=== PATIENT | male | born 1940 | race Caucasian/White ===

== ENCOUNTER 2019-10-13 17:59 | Inpatient (IN) | payer MEDICARE, MEDICAID ==
[2019-10-14 01:46] VITALS: BP 106/58
[2019-10-14] MEDS ORDERED: Magnesium Hydroxide (MOM) 30 mL UDC PO PRN (01:46)
[2019-10-14] MEDS ORDERED: Maalox 30 mL Cup PO PRN (01:46)
[2019-10-14] MEDS: Multivitamin Tab PO SCH (09:28)
--- NOTE | 2019-10-14 22:24 | Progress Notes ---
DATE: 10/14/2019 INTERNAL MEDICINE FOLLOWUP PRIMARY CARE PHYSICIAN: David Mckee MD HISTORY OF PRESENT ILLNESS: The patient is a 79-year-old male, currently at [facility]. I am the PCP. CURRENT MEDICAL PROBLEMS: Include arthritis, peptic ulcer disease, osteoporosis, and coronary artery disease. PHYSICAL EXAMINATION: VITAL SIGNS: Stable. LUNGS: Clear. HEART: First and second heart sounds normal. ABDOMEN: Soft. Bowel sounds present and good. EXTREMITIES: Show arthritis. NEUROLOGIC: The patient is very agitated and confused. Psych consult reviewed. Medicines reviewed. LABORATORY DATA: Reviewed. PLAN: Continue current medical management. JOB# [id number]
--- NOTE | 2019-10-14 23:25 | Consultation ---
DATE OF CONSULTATION: 10/14/2019 INTERNAL MEDICINE CONSULTATION HISTORY OF PRESENT ILLNESS: This is a patient of mine, 79-year-old male, a resident of a correction, sent to [facility]. CURRENT MEDICAL PROBLEMS: Include coronary artery disease, peptic ulcer disease, arthritis, osteoporosis, and anemia. SOCIAL HISTORY: No prior history of smoking or alcohol abuse. FAMILY HISTORY: Not available. REVIEW OF SYSTEMS: The patient is very agitated. No vomiting, no diarrhea, no melena, no hematochezia. PHYSICAL EXAMINATION: GENERAL: Average male, in no obvious respiratory distress. VITAL SIGNS: Include a blood pressure of 110/70, heart rate 80, respiration rate of 18. SKIN: Show no cellulitis. HEENT: Normal conjunctivae. NECK: Supple. LUNGS: Clear. HEART: First and second normal. ABDOMEN: Soft. Bowel sounds present and good. EXTREMITIES: Show arthritis. NEUROLOGIC: The patient is very confused, very agitated. Labs have been reviewed. Psych consult reviewed. CURRENT MEDICAL DIAGNOSES: Include coronary artery disease, peptic ulcer disease, arthritis, and osteoporosis. CURRENT MEDICATIONS: Include Aricept, Colace, Namenda, and multivitamin. JOB# [id number]
--- NOTE | 2019-10-15 00:24 | Psychiatric Evaluation ---
DATE OF SERVICE: 10/14/2019 PSYCHIATRIC EVALUATION IDENTIFYING DATA: The patient is a 79-year-old male, resident of [facility] in [place]. Information obtained by directly interviewing the patient as well as reviewing the admission papers. JUSTIFICATION FOR HOSPITALIZATION: The patient is admitted on a 5150 as a danger to others. CHIEF COMPLAINT: "I don't know." HISTORY OF PRESENT ILLNESS: This is the first psychiatric hospitalization to the [facility] for this patient who is reported to have been striking out at the staff members and could not be redirected and hence the patient has to be admitted. I tried to interview the patient, but the patient is not providing much of any information. The patient is getting easily irritable and angry. The patient's sleep and appetite prior to the hospitalization are reported to be poor. PAST PSYCHIATRIC HISTORY: Details are not known. MEDICAL HISTORY AND PHYSICAL EXAMINATION: Requested to be done by Dr. David Mckee. SUBSTANCE ABUSE HISTORY: None. PHYSICAL OR SEXUAL ABUSE HISTORY: None. LEGAL PROBLEMS: None at this time. MENTAL STATUS EXAMINATION: The patient is a 79-year-old thin built, tall, superficially cooperative, very dysphoric. Insight and judgment at this time are noted to be still impaired. Impulse control is noted to be limited. Coping skills are noted to be limited. The patient has been having difficult time to cope with the stress. The patient's short and long-term memory are noted to be impaired. The patient is getting easily frustrated. Paranoia is noted, but the patient denies any command hallucinations. Attention span and concentration are noted to be poor at this time. DIAGNOSTIC IMPRESSION: AXIS I: Dementia and behavioral changes, secondary trait. AXIS IB: Mood disorder, not otherwise specified. PLAN: To continue the patient with the supportive therapy, encouraged the patient to verbalize the concerns rather than to act out. JOB# [id number]
[2019-10-15] MEDS: Multivitamin Tab PO SCH (08:20)
--- NOTE | 2019-10-15 13:07 | Progress Notes ---
DATE: 10/15/2019 INTERNAL MEDICINE CONSULTATION FOLLOWUP SUBJECTIVE: The patient is a 79-year-old male, [facility]. CURRENT MEDICAL PROBLEMS: Include peptic ulcer disease, gastritis, arthritis, osteoporosis, and coronary artery disease. OBJECTIVE: VITAL SIGNS: Stable. LUNGS: Clear. HEART: First and second heart sounds normal. ABDOMEN: Soft. Bowel sounds presents and good. EXTREMITIES: Show arthritis. NEUROLOGIC: The patient has advanced psychosis. Psych consult reviewed. Labs reviewed. Medicines reviewed. PLAN: Continue current medical management. JOB# [id number]
--- NOTE | 2019-10-15 23:55 | Progress Notes ---
DATE: 10/15/2019 PSYCHIATRIC PROGRESS NOTE SUBJECTIVE: Staff was spoken to. The patient is interviewed. Mood is noted to be irritable. Affect is constricted. The patient's insight and judgment at this time are noted to be still impaired. Impulse control is noted to be limited. Coping skills are noted to be limited. The patient has been having difficult time to cope with the stress. ASSESSMENT: The patient is stabilizing. PLAN: To continue the patient with the current medications. I encouraged the patient to verbalize the concerns rather than to act out. Please note that the patient is not ready to be discharged to a lower level of care. JOB# [id number]
[2019-10-16] MEDS: Multivitamin Tab PO SCH (08:50)
--- NOTE | 2019-10-16 15:54 | Consultation ---
DATE OF CONSULTATION: 10/15/2019 REFERRING PHYSICIANS: Toby John MD and Darion Arana MD TYPE OF CONSULTATION: Psychology. HISTORY OF PRESENT ILLNESS: The patient is a 79-year-old male. The patient is a resident of [facility] in [place]. The following is by record review and by the patient's self-report. According to record review, the patient is being admitted on a 5150 as a danger to others. The staff at the patient's facility report that the patient had been striking out at staff members and was unable to be contained and redirected. Therefore, the patient was transferred here and admitted for stabilization. Upon interview, the patient is not providing much information and is easily agitated with anger outbursts. The patient does not understand why he is being hospitalized. The patient did not answer questions about suicidal or homicidal ideation with a plan or intention at the time of this clinical interview. PAST MEDICAL HISTORY: Please see history and physical by Dr. Mckee. PAST PSYCHIATRIC HISTORY: Records are unavailable. Details are unknown. SUBSTANCE ABUSE HISTORY: The patient did not answer these questions. Records indicate no history of alcohol, tobacco or drug use. BRIEF PSYCHOSOCIAL HISTORY: The patient is a resident of [facility] in [place]. The patient did not answer questions about occupational or educational history. The patient indicated that he is and that his spiritism affiliation is [employer]ism. The patient states his 's name is Yudelka, but did not answer questions about having any children. He did not answer questions about history of physical or sexual abuse or current legal problems. MENTAL STATUS EXAMINATION: The patient appears to be his stated age and is thin and somewhat frail looking. Attitude is guarded. Eye contact is poor. Speech is loud with verbal outbursts. The patient is easily agitated. Mood is depressed and irritable. Affect is mood congruent. Thought process shows to be confused. The patient is not providing much information. The patient denied any suicidal or homicidal ideation, plan or intention. The patient did not answer questions about experiencing auditory or visual hallucinations. The patient's behavior has been easily agitated and difficult to redirect and contain. Impulse control is inadequate. Concentration is poor. The patient did not participate in the memory assessment. The patient was getting easily frustrated. There may be some paranoid ideation present. This needs further evaluation. It appears that the patient's short term memory may be impaired. Long-term memory needs further evaluation. Sensorium is alert and oriented to self and place only. The patient did not participate in the interpretation of proverbs. Insight is poor. Judgment is impaired. DIAGNOSTIC IMPRESSION: AXIS I: 1. Provisional diagnosis of dementia with behavioral disturbance. 2. Mood disorder, not otherwise specified. AXIS II: Deferred. AXIS III: Per Dr. Mckee. PLAN: The patient has been seen by Dr. John for psychiatric evaluation and for the management of the patient's psychotropic medications. We will provide supportive psychotherapy to include reality orientation, differentiation and integration. We will provide limit setting and de-escalation to assist the patient in reducing his verbal anger outbursts as well as prevent any striking out behaviors as reported by the staff at the patient's facility. We will provide motivational enhancement for the patient to become compliant and stay compliant with all aspects of his care and treatment. We will provide coping strategies for phase of life issues. We will also provide stress management to assist the patient in increasing his frustration tolerance. If the patient is able to participate in a cognitive behavioral therapeutic approach to reduce his depression, we will provide this as well. Thank you, Dr. John and Dr. Arana for this consult and the opportunity to participate with you in this patient's care. JOB# [id number] BENJI
--- NOTE | 2019-10-16 18:33 | Progress Notes ---
DATE: 10/16/2019 INTERNAL MEDICINE CONSULTATION FOLLOWUP SUBJECTIVE: The patient is a 79-year-old male, [facility]. CURRENT MEDICAL PROBLEMS: Include coronary artery disease, peptic ulcer disease, gastritis, arthritis. CHIEF COMPLAINT: No new symptoms. OBJECTIVE: VITAL SIGNS: Stable. LUNGS: Clear. HEART: First and second normal. ABDOMEN: Soft. Bowel sounds good. EXTREMITIES: Show arthritis. NEUROLOGIC: The patient has advanced psychosis. Psych consult reviewed. Medicines reviewed. PLAN: Continue current medical management. JOB# [id number]
--- NOTE | 2019-10-17 02:58 | Progress Notes ---
DATE: 10/16/2019 PSYCHIATRIC PROGRESS NOTE SUBJECTIVE: Staff was spoken to. The patient is interviewed. Mood is noted to be anxious. Affect is appropriate. The patient is not making much sense. Coping skills at this time are noted to be very poor. The patient has been having difficult time to cope with the stress. No side effects to the medications are noted. The patient has been isolative and withdrawn. The patient is confused and not making much sense. The patient's short and long-term memory are noted to be very poor. ASSESSMENT: The patient is still demented and impulsive. PLAN: To continue the patient with the supportive therapy and followup. JOB# [id number]
[2019-10-17] MEDS: Multivitamin Tab PO SCH (09:15)
--- NOTE | 2019-10-17 16:03 | Progress Notes ---
DATE: 10/17/2019 INTERNAL MEDICINE CONSULTATION FOLLOWUP SUBJECTIVE: The patient is a 79-year-old male resident of [facility]. CURRENT MEDICAL PROBLEMS: Include coronary artery disease, peptic ulcer disease, gastritis, arthritis and osteoporosis. CHIEF COMPLAINT: No new symptoms. No fever. No recent fall. OBJECTIVE: VITAL SIGNS: Stable. LUNGS: Clear. HEART: First and second heart sounds normal. ABDOMEN: Soft. Bowel sounds present. EXTREMITIES: Show arthritis. NEUROLOGIC: The patient has advanced psychosis. Psych consult reviewed. Medicines reviewed. PLAN: Continue current medical management. JOB# [id number]
--- NOTE | 2019-10-17 23:33 | Progress Notes ---
DATE: 10/17/2019 PSYCHIATRIC PROGRESS NOTE SUBJECTIVE: Staff was spoken to. The patient is interviewed. Mood is noted to be irritable. Affect is constricted. The patient has not been making much sense. Coping skills at this time are noted to be very poor. The patient is isolative and withdrawn. No side effects to the medications are noted as the patient is currently only on the low dose of lorazepam and the patient at this time is able to tolerate the medication. ASSESSMENT: The patient is still demented and agitated. PLAN: To continue the patient with the supportive therapy, encouraged the patient to verbalize the concerns rather than to act out. JOB# [id number]
[2019-10-18] MEDS: Multivitamin Tab PO SCH ×2 (08:04→09:21)
[2019-10-18] MEDS ORDERED: Haldol Oral Sol.(concentrate) 10 mg/5 mL Udc PO SCH (09:00)
--- NOTE | 2019-10-18 12:06 | Progress Notes ---
DATE: 10/18/2019 SUBJECTIVE: The patient is a 79[facility] CURRENT MEDICAL PROBLEMS: Include coronary artery disease, peptic ulcer disease, gastritis, arthritis and osteoporosis. CHIEF COMPLAINT: No new symptoms. OBJECTIVE: VITAL SIGNS: Stable. LUNGS: Clear. HEART: First and second normal. ABDOMEN: Soft. Bowel sounds present and good. EXTREMITIES: Show arthritis. NEUROLOGIC: The patient has had aggressive and advanced psychosis. Psych consult reviewed. Medicines reviewed. PLAN: Continue current medical management. JOB# [id number]
--- NOTE | 2019-10-18 17:43 | Progress Notes ---
DATE: 10/18/2019 SUBJECTIVE: Staff was spoken to. The patient is interviewed. Mood is noted to be irritable. Affect is constricted. The patient's coping skills at this time are noted to be poor. The patient has been pacing most of the time on the unit. Insight and judgment at this time are noted to be impaired. Impulse control seems to be limited. The patient has been refusing to comply with the medication. The patient has to be given the liquid of the concentrated Haldol and the patient has been still very psychotic and aggressive type to yell people out and is not ready to be discharged to a lower level of care. JOB# [id number]
[2019-10-19] MEDS: Multivitamin Tab PO SCH (08:29)
--- NOTE | 2019-10-19 12:39 | Progress Notes ---
DATE: 10/19/2019 PSYCHIATRIC PROGRESS NOTE SUBJECTIVE: Staff was spoken to. The patient is interviewed. Mood is noted to be irritable. Affect is constricted. The patient's insight and judgment are noted to be still impaired. Impulse control is noted to be limited. Coping skills are noted to be limited. The patient has been having difficult time to cope with the stress. The patient is pacing most of the time on the unit. The patient is reluctant to take any medications and the patient has been placed on haloperidol and the dose of that medication is going to be increased to 1 mg and the patient is going to be followed up with supportive therapy. ASSESSMENT: The patient is still impulsive and psychotic. PLAN: To continue the patient with supportive therapy, encouraged the patient to verbalize the concerns rather than to act out. JOB# [id number]
--- NOTE | 2019-10-19 19:19 | Progress Notes ---
DATE: 10/18/2019 PSYCHOLOGY PROGRESS NOTE SUBJECTIVE: The patient is seen and is interviewed. Case has been discussed with the staff. The patient continues to present as guarded and suspicious and easily irritated. Staff reports the patient has been pacing on the unit and is refusing to comply with the medication. OBJECTIVE: Mood is irritable and depressed. Affect is mood congruent and reactive. Thought process includes paranoid ideation. The patient remains psychotic. The patient did not answer questions about auditory or visual hallucinations. The patient's behavior has been aggressive and yelling at people as well as refusing care with poor redirection. ASSESSMENT: The patient's psychosis and aggressive behavior persist. PLAN: We provided de-escalation and limit setting as well as boundary definitions. The patient did not respond well to this. We provided a simple anger management skill. The patient did not participate. We provided stress management to assist the patient in increasing his frustration tolerance and to verbalize his concerns versus aggressively acting out verbally and behaviorally. We will continue to provide this treatment and followup in 2-3 days if the patient remains on the unit. JOB# [id number] BENJI
[2019-10-20] MEDS: Multivitamin Tab PO SCH (09:30)
--- NOTE | 2019-10-20 15:43 | Progress Notes ---
DATE: 10/20/2019 PSYCHIATRIC PROGRESS NOTE SUBJECTIVE: Staff was spoken to. The patient is interviewed. Mood is noted to be irritable. Affect is constricted. Insight and judgment at this time are noted to be still impaired. Impulse control is noted to be limited. Coping skills are noted to be limited. The patient is pacing most of the time on the unit and has problem with the both short term as well as long-term memories. ASSESSMENT: The patient is still psychotic and impulsive. PLAN: To continue the patient with the supportive therapy and followup. JOB# [id number]
--- NOTE | 2019-10-21 02:17 | Progress Notes ---
DATE: 10/20/2019 The patient is a 79-year-old male, [facility]. CURRENT MEDICAL PROBLEMS: Include coronary artery disease, peptic ulcer disease, gastritis, arthritis, and osteoporosis. SUBJECTIVE: No new symptoms. OBJECTIVE: VITAL SIGNS: Stable. LUNGS: Clear. HEART: First and second normal. ABDOMEN: Soft. Bowel sounds are present and good. EXTREMITIES: Show arthritis. NEUROLOGIC: The patient has advanced psychosis. TREATMENT PLAN: Continue current medical management. Psych consult reviewed and with the medicine followup. JOB# [id number]
[2019-10-21] MEDS: Multivitamin Tab PO SCH (08:16)
--- NOTE | 2019-10-21 12:22 | Progress Notes ---
DATE: 10/21/2019 INTERNAL MEDICINE CONSULTATION PROGRESS NOTE SUBJECTIVE: The patient is a 79-year-old male, currently seen at [facility]. Current medical problems include arthritis, peptic ulcer disease, osteoporosis, and coronary artery disease. No new symptoms. OBJECTIVE: VITAL SIGNS: Stable. LUNGS: Clear. HEART: First and second heart sounds normal. ABDOMEN: Soft. Bowel sounds present and good. EXTREMITIES: Show arthritis. NEUROLOGIC: The patient has advanced psychosis. ASSESSMENT AND PLAN: Psych consult reviewed. Medicines reviewed. Continue current medical management. JOB# [id number]
--- NOTE | 2019-10-22 00:21 | Progress Notes ---
DATE: 10/21/2019 PSYCHIATRIC PROGRESS NOTE SUBJECTIVE: Staff was spoken to. The patient is interviewed. Mood is noted to be irritable. Affect is constricted. The patient is less aggressive, but the patient is pacing most of the time. Continues to be paranoid. Insight and judgment are noted to be still impaired. Impulse control is noted to be limited. The patient has no idea that he is in a psychiatric hospital. The patient is very intrusive and has been trying to reach out to the nurses' desk. The patient needs to be redirected constantly. ASSESSMENT: The patient is still psychotic and demented. PLAN: To continue the patient with the current medications and encouraged the patient to verbalize the concerns rather than to act out. JOB# [id number]
[2019-10-22] MEDS: Multivitamin Tab PO SCH (09:12)
--- NOTE | 2019-10-22 10:39 | Progress Notes ---
DATE: 10/22/2019 INTERNAL MEDICINE CONSULTATION FOLLOWUP SUBJECTIVE: The patient is a 79-year-old male, currently seen at [facility]. CURRENT MEDICAL PROBLEMS: Include coronary artery disease, peptic ulcer disease, gastritis, arthritis and osteoporosis. No new symptoms. OBJECTIVE: VITAL SIGNS: Stable. LUNGS: Show bilateral rhonchi, occasional crepitation. No bronchial breathing. HEART: First and second heart sounds normal. ABDOMEN: Soft, bowel sounds present and good. EXTREMITIES: Show arthritis. NEUROLOGIC: The patient has no additional focal motor deficit. PLAN: Psych consult reviewed. Medicines reviewed. Continue current medical management. JOB# [id number]
--- NOTE | 2019-10-22 11:07 | Discharge Summary ---
DATE OF DISCHARGE: 10/22/2019 IDENTIFYING DATA: The patient is a 79-year-old male, resident of [facility] in [place]. JUSTIFICATION OF HOSPITALIZATION: The patient is admitted on 5150 as a danger to others. CHIEF COMPLAINT: "I don't know." DIAGNOSES AT THE TIME OF ADMISSION: AXIS I: A. Dementia and behavioral changes secondary to dementia. B. Mood disorder, not otherwise specified. AXIS II: None. AXIS III: As per Dr. David Mckee. HOSPITAL COURSE AND RESPONSE TO TREATMENT: The patient has been observed on inpatient unit, provided with supportive psychotherapy. The patient has been pacing most of the time. The patient was given the Haldol on a p.r.n. basis and the patient developed EPS and has to be discontinued and the patient has been given the dose of the Benadryl. The patient was continued on the donepezil and the patient has been encouraged to verbalize the concerns. The patient started to do fairly well and not giving any major problems and hence the patient was discharged on 10/22/2019 with recommendation that he is going to be seeking treatment by Dr. Arana on an outpatient basis. MENTAL STATUS EXAMINATION: At the time of discharge, the patient noted to be less irritable. Affect is appropriate. Not suicidal or homicidal. Insight and judgment at this time are noted to be fair. Impulse control is also noted to be fair. DIAGNOSES AT THE AT THE TIME OF DISCHARGE: AXIS I: Dementia and behavioral changes secondary to dementia. AXIS II: None. AXIS III: None. AFTERCARE PLAN: [facility]. [facility]# [id number]
== END 2019-10-22 15:25 | DRG 884 ==
LOC: GERO 10-14 01:00
PROVIDERS: ADMIT Psychiatry & Neurology Psychiatry; ATTEND Psychiatry & Neurology Psychiatry
DX: F03.91 Unspecified dementia, unspecified severity, with behavioral disturbance (principal); I25.10 Atherosclerotic heart disease of native coronary artery without angina pectoris; Z87.11 Personal history of peptic ulcer disease; K29.70 Gastritis, unspecified, without bleeding
CPT/HCPCS: 83036-90; J1200; Z7610